=== PATIENT | female | born 1975 | race Caucasian/White ===

== ENCOUNTER 2018-10-08 07:40 | Day surgery (SDC) | payer OTHER ==
[2018-10-06 14:42] LABS: CLARITY,URINE CLOUDY (Clear); COLOR,URINE YELLOW (Yellow); GLUCOSE, URINE NEGATIVE (Neg); KETONES,URINE NEGATIVE (Neg); LEUKOCYTE ESTERASE ,URINE NEGATIVE (Neg); NITRITES, URINE NEGATIVE (Neg); OCCULT BLOOD,URINE NEGATIVE (Neg); PH,URINE 5.5 (4.8-8.0); PROTEIN,URINE TRACE mg/dl (Neg); UROBILINOGEN,URINE 0.2 E.U/dL (0.2-1.0)
[2018-10-06 14:48] LABS: BASOPHILS # (AUTO) 0.1 X10'3 (0-0.2); BASOPHILS % (AUTO) 0.7 % (0-1); EOSINOPHILS # (AUTO) 0.6 X10'3 (0-0.9); LYMPHOCYTES # (AUTO) 4.7 X10'3 (1.1-4.8); LYMPHOCYTES % (AUTO) 30.5 % (21-51); MEAN CORPUSCULAR HEMOGLOBIN 26.4 PG (27.0-31.0); MEAN CORPUSCULAR HGB CONC 32.1 g/dL (33.0-36.5); MEAN CORPUSCULAR VOLUME 82.3 FL (78-98); MEAN PLATELET VOLUME 8.3 FL (7.4-10.4); MONOCYTES % (AUTO) 6.7 % (2-12); NEUTROPHILS # (AUTO) 8.9 X10'3 (1.8-7.7); NEUTROPHILS % (AUTO) 58.1 % (42-75); PRE OP HEMATOCRIT 40.4 % (35.0-45.0); PRE OP PLATELET COUNT 339 X10'3 (140-440); RED BLOOD COUNT 4.91 X10'6 (4.20-5.60)
[2018-10-06 14:51] LABS: UA COLLECTION TYPE CLN CATCH MIDSTREAM
[2018-10-06 14:53] LABS: HYALINE CASTS 0-3 /LPF (NEGATIVE); MUCUS STRANDS MODERATE /LPF (Neg); SQUAMOUS EPITHELIAL CELL,UR MANY /LPF (FEW)
[2018-10-06 14:54] LABS: BACTERIA,URINE 1+ /HPF (Neg); RBC,URINE 0-2 /HPF (0-2)
[2018-10-06 14:58] LABS: ALBUMIN 3.5 G/DL (3.4-5.0); BLOOD UREA NITROGEN 15 MG/DL (7-18); BUN/CREATININE RATIO 16.3 (6.6-38.0); CALCIUM 8.9 MG/DL (8.5-10.1); CHLORIDE 101 MMOL/L (99-107); CREATININE 0.92 MG/DL (0.40-0.90); PRE OP ANION GAP 7 (8-16); PRE OP BILIRUB, TOTAL 0.2 MG/DL (0.0-1.0); PRE OP GLUCOSE 96 MG/DL (70-104); PRE OP SODIUM 137 MMOL/L (135-145); TOTAL CARBON DIOXIDE 28.7 MMOL/L (24-32); TOTAL PROTEIN 7.8 G/DL (6.4-8.2); eGFR 66 ML/MIN
[2018-10-06 14:59] LABS: ALBUMIN/GLOBULIN RATIO 0.8 (1.1-1.5); ALKALINE PHOSPHATASE 129 IU/L (46-116); PRE OP ALT 37 U/L (30-65); PRE OP AST 26 U/L (10-37)
[2018-10-06 15:00] LABS: PRE OP POTASSIUM 3.3 MMOL/L (3.4-5.1)
[2018-10-06 15:29] LABS: HCG SERUM QL NEGATIVE
[2018-10-08] VITALS (7 sets, daily range): BP systolic 124–135; BP diastolic 62–90
[~2018-10-08] VITALS: Ht 162.6 cm; Wt 130.4 kg
[~2018-10-08 07:40] MED LIST: BUPR1PAT20 TOP; DULO30CA51 PO; HYDR-3972 PO; IBUP-1984 PO; OMEP20CA10 PO; SERT50TA10 PO; albuterol 2.5 MG/3 ML nebule NEB ONE; ceFAZolin inj. 3,000 MG in normal saline 100ml IV soln 100 ML IV ONE; famotidine 20mg tablet PO ONE; ringers solution, lacted 1,000 ML IV SCH; scopolamine 1.5mg patch.TD72 TD ONE
[2018-10-08] MEDS ORDERED: LIDOcaine 1% (10mg/ml) 2ml vial ONE (08:20)
[2018-10-08] MEDS ORDERED: ketorolac trometh. 30mg/ml inj. ONE (08:41)
[2018-10-08] MEDS ORDERED: LIDOcaine 1% 30ml preserv. free vial ONE (08:41)
[2018-10-08] MEDS ORDERED: BUPIVAcaine/PF 2.5 mg/ml (0.25%) 30ml vial ONE (08:42)
[2018-10-08] MEDS ORDERED: ROPIVAcaine 0.5% (5mg/ml) 30ml vial ONE (08:42)
[2018-10-08] MEDS ORDERED: midazolam 2 mg/2 ml injection ONE (09:43)
[2018-10-08] MEDS ORDERED: rocuronium 10mg/ml inj IV ONE (09:43)
[2018-10-08] MEDS ORDERED: fentaNYL /PF 50mcg/ml 5ml ampule ONE (09:43)
[2018-10-08] MEDS ORDERED: propofol inj 20 ML IV ONE (09:43)
[2018-10-08] MEDS ORDERED: dexamethasone sod phosphate 4mg/ml inj. ONE (09:56)
[2018-10-08] MEDS ORDERED: morphine 4 MG/ML inj SYRINge IV PRN ×2 (10:40)
[2018-10-08] MEDS ORDERED: ringers solution, lacted 1,000 ML IV SCH (10:40)
[2018-10-08] MEDS ORDERED: meperidine/PF 25mg/ml syringe IV PRN ×3 (10:40)
[2018-10-08] MEDS ORDERED: proCHLORperazine 10 MG/2 ml inj IV PRN (10:40)
[2018-10-08] MEDS ORDERED: ondansetron/PF 4mg/2ml inj IV PRN (10:40)
[2018-10-08] MEDS ORDERED: ondansetron/PF 4mg/2ml inj ONE (11:29)
[2018-10-08] MEDS ORDERED: neostigmine methylsulfate 1 MG/ML 10ml vial ONE (11:31)
--- NOTE | 2018-10-08 11:55 | NUR ---
Received from OR via BED, accompanied by Anesthesiologist DR RUIZ-- and report given by Anesthesiolgist. PATIENT A&OX4, DENIES PAIN, V/S WNL, NEUROVASCULAR CHECKS INTACT, 20G PIV RUE, SCD ON, 3 BANDAIDS TO ABDOMEN CDI WITH ABDOMINAL BINDER
[2018-10-08] MEDS ORDERED: oxyCODONE/APAP 10/325mg tablet PO ONE (12:20)
--- NOTE | 2018-10-08 12:45 | NUR ---
PATIENT A&OX4, DENIES PAIN, V/S WNL, NEUROVASCULAR CHECKS INTACT, 20G PIV RUE D/C, SCD OFF, 3 BANDAIDS TO ABDOMEN CDI WITH ABDOMINAL BINDER. I HAVE REVIEWED D/C INSTRUCTIONS WITH PATIENT AND FAMILY AND THEY HAVE VERBALIZED UNDERSTANDING. PATIENT D/C HOME WITH SCRIPT AND ALL BELONGINGS AND FAMILY GAVE TRANSPORT HOME.
== END 2018-10-08 12:45 | disposition home or self-care (01) ==
LOC: PAS 07:40
PROVIDERS: ATTEND Surgery
DX: K43.0 Incisional hernia with obstruction, without gangrene (principal); F41.8 Other specified anxiety disorders; G43.909 Migraine, unspecified, not intractable, without status migrainosus; Z79.899 Other long term (current) drug therapy; Z90.49 Acquired absence of other specified parts of digestive tract; Z98.890 Other specified postprocedural states; Z87.891 Personal history of nicotine dependence
CPT/HCPCS: 36415; 49655; 64488; 80053; 81001; 82948; 84703; 85025; 93005; C1781; J0690; J1100; J1885; J2250; J2405; J2704; J2710; J3010; J3490; J2795; J7030; J7120